=== PATIENT | female | born 1975 ===

== ENCOUNTER 2022-06-07 12:11 | Outpatient (REF) | payer MEDICAID, SELFPAY ==
--- NOTE | 2022-06-07 09:15 | EMG_ITS ---
Please see scanned EMG / Nerve Conduction Report. MTDD
== END 2022-06-07 12:12 | disposition home or self-care (01) ==
LOC: HO.NEURO 12:11
PROVIDERS: PCP Internal Medicine
DX: R20.2 Paresthesia of skin (principal)
CPT/HCPCS: 95885; 95910

== ENCOUNTER 2025-01-29 09:55 | Outpatient (AMB) | payer MEDICAID, SELFPAY ==
[2025-01-29 10:05] VITALS: BP 146/80; PULSE 94; O2SAT 97; BMI 34.9
--- NOTE | 2025-01-29 10:05 | A.OFFVIS_ITS ---
Vital Signs 3 01/29/25 10:05 Height 5 ft 6 in Weight 216 lb 4.375 oz BMI 34.9 BP 146/80 H Blood Pressure Location Lt brachial Position Sitting Pulse 94 Pulse Source Pulse Oximeter Pulse Oximetry (%) 97 Oxygen Delivery Method Room Air Intake Visit Reasons: Hx of thyroid cancer, adrenal mass,Hyperparathyroi Intake Note: New patient present today for Hx of thyroid cancer, adrenal mass and Hyper parathyroid. Library Manager Required: Yes Library Manager Language: Medical Billing Supervisor Services: Library Manager Offered & Declined Accompanied by: Spouse Allergies cephalexin Allergy (Mild, Verified 01/29/25 10:10) Dizziness Medication List - Last Reconciled 01/29/25 by Estephanie Cevallos MD albuterol sulfate 90 mcg/actuation (Ventolin HFA) 1 inh inhalation QID atorvastatin (Lipitor) 20 mg PO DAILY cholecalciferol (vitamin D3) 250 mcg PO DAILY fluticasone furoate 50 mcg/actuation inhalation loratadine (Claritin) 10 mg PO DAILY melatonin 10 mg PO BEDTIME PRN nystatin 1 appl topical DAILY omeprazole 20 mg PO DAILY prednisone 20 mg PO DAILY sertraline 25 mg PO DAILY tramadol 50 mg PO DAILY HPI Comments Details: 49-year-old female coming in today for initial evaluation with a history of thyroid cancer, status post right hemithyroidectomy at age 15 with findings of thyroid cancer per patient, no completion thyroidectomy or radioactive iodine done, who was then followed by previous reverberatory furnace supervisor for left-sided nodules, hypothyroidism, history of secondary hyperparathyroidism which resolved after replacement of vitamin-D, history of right 2.5 cm adrenal gland nodule. Here today with Tong Panda jameson Dunlap ? Left ? In [place]. last visit 2018. Multinodular goiter Hypothyroidism Thyroid cancer History of thyroid cancer Age 15: Status post right hemithyroidectomy by an MD through [employer] organization in [facility]. No surgical records or pathology present. No completion thyroidectomy or radioactive iodine done after surgery. Per patient she was told she has thyroid cancer. Then in her 30s had compressive symptoms, was found to have left-sided thyroid nodules, for which she has been followed with surveillance ultrasounds. Per last Endocrinology records 12/06: Ultrasound neck showed stable left midpole 1.3 cm and 0.8 cm. Midline 8 mm solid hypoechoic nodule with calcifications read as TR 5 which was stable compared to 2018 per notes. Developed hypothyroidism 13 years post surgery. Currently on levothyroxine 75 mcg daily. History of secondary hyperparathyroidism resolved after vitamin-D was repleted 2019, no need to follow on this. Adrenal nodule. Elevated cortisol level Incidentally discovered right 2.5 cm adrenal nodule? Previous workup showed negative plasma metanephrine normetanephrine levels from 2019. Normal aldosterone levels from 2019. Apparently 1 mg dexamethasone suppression test was abnormal with a cortisol level of 2, dexamethasone level not measured. Salivary cortisol levels were then ordered in 2019 which were both normal X 2. Labs reviewed 03/12/2019 Salivary cortisol 0.024 and 0.022 Aldosterone 8.3 Plasma renin activity 1.2 Plasma normetanephrine levels 79 Plasma metanephrine 33 no offical diagnosis of HTN but BP elevated today, prediabets No easy bruising No fractures No skin thinning No facial plethora weight stable Physical exam General: sitting comfortably in no acute distress HEENT: normocephalic/atraumatic, Neck: supple, palpable 2 cm left-sided nodule Cardiac: normal heart sounds Pulm: normal breath sounds B/L, no added breath sounds Abd: not distended, no tenderness Extremities: no edema, no signs of myxedema PFSH Medical History (Updated 01/29/25 @ 10:13 by Estephanie Cevallos MD) Hypothyroidism (acquired) History of thyroid cancer Multinodular goiter (nontoxic) Adrenal nodule Surgical History (Updated 01/29/25 @ 10:11 by ALINE Kim) Hx of breast reduction, elective History of lobectomy of thyroid H/O: hysterectomy Family History Mother Diabetes Hyperlipemia Hypertension Father Hypertension Social History Alcohol intake: current Alcohol intake frequency: does not drink Patient Tobacco Use Status: Never used Tobacco Physical Exam Vital Signs: Last Vital Signs Pulse 94 01/29/25 10:05 BP 146/80 H 01/29/25 10:05 Pulse Ox 97 01/29/25 10:05 Oxygen Delivery Method Room Air 01/29/25 10:05 BMI result Body Mass Index 34.9 Assessment & Plan Assessment & Plan (1) Multinodular goiter (nontoxic): Code(s): E04.2 - Nontoxic multinodular goiter Category: Medical Plan: 49-year-old female coming in today for initial evaluation with a history of thyroid cancer status post right hemithyroidectomy at age 15 with findings of thyroid cancer per patient, no pathology or surgical records available this was in [place] and, no completion thyroidectomy or radioactive iodine after surgery, likely was MARCO low risk? Has been followed with surveillance ultrasounds by prior reverberatory furnace supervisor for left-sided nodules, last ultrasound neck was in 2019. At this time I will obtain an updated neck ultrasound. Apparently 13 years after surgery she was also started on levothyroxine, per records it shows she was on 100 mcg daily recently, however per patient she has not been on levothyroxine since 2019 as that was last prescribed by her reverberatory furnace supervisor. I will check TSH and free T4. I have also asked them to bring all medication bottles to next visit to clarify her medication reconciliation. Plan: -ordered ultrasound of the thyroid -ordered TSH, free T4 , TG and TG antibody levels -bring all medication bottles to next visit (2) Hypothyroidism (acquired): Code(s): E03.9 - Hypothyroidism, unspecified Category: Medical Plan: See above (3) History of thyroid cancer: Code(s): Z85.850 - Personal history of malignant neoplasm of thyroid Category: Medical Plan: See above (4) Adrenal nodule: Code(s): E27.9 - Disorder of adrenal gland, unspecified Category: Medical Plan: 49-year-old female with history of incidentally discovered right-sided 2.5 cm adrenal nodule per records. Previous workup from 2019 showed negative plasma metanephrine normetanephrine levels ruling out pheochromocytoma. Normal aldosterone levels from 2019 with non suppressed plasma renin activity, no concerns for hyperaldosteronism. Patient has no official diagnosis of hypertension, blood blood pressure noted to be elevated today. I told her to keep an eye on it and discuss PCP if remains elevated. Workup in 2019 showed equivocal dexamethasone suppression test with cortisol level of 2 however dexamethasone level was not obtained on this. She had 2 normal salivary cortisol levels in 2019. She does not have any history of diabetes, does have history of prediabetes, weight has been stable, no cushingoid features on exam. I would have repeated her dexamethasone suppression test, however at this time apparently she is on prednisone 20 mg daily which is on her medication list. She is not sure if she is taking this medication or why she was prescribed this. At this point I will F asked her to bring all her medication bottles to next visit, we will obtain a baseline cortisol, acth, DHEA-S level but have to keep in mind that this could be affected if she is actually on prednisone. She was supposed to have repeat CT scan in 2019, no record of repeat CT scan done, she was then lost to follow up. Plan: -ordered cortisol, acth, DHEA-S levels -bring on medication bottles to next visit -ordered CT adrenal gland -follow up in 4 weeks to discuss results Plan I spent 45 minutes in reviewing the record, seeing the patient and documenting in the medical record. Orders: Orders 2 US thyroid Today E03.9 - Hypothyroidism, unspecified, E04.2 - Nontoxic multinodular goiter, E27.9 - Disorder of adrenal gland, unspecified, Z85.850 - Personal history of malignant neoplasm of thyroid Thyroid Stimulating Hormone Today E03.9 - Hypothyroidism, unspecified, E04.2 - Nontoxic multinodular goiter, E27.9 - Disorder of adrenal gland, unspecified, Z85.850 - Personal history of malignant neoplasm of thyroid Adrenocorticotropic Hormone Today E03.9 - Hypothyroidism, unspecified, E04.2 - Nontoxic multinodular goiter, E27.9 - Disorder of adrenal gland, unspecified, Z85.850 - Personal history of malignant neoplasm of thyroid DHEA Sulfate Today E03.9 - Hypothyroidism, unspecified, E04.2 - Nontoxic multinodular goiter, E27.9 - Disorder of adrenal gland, unspecified, Z85.850 - Personal history of malignant neoplasm of thyroid Thyroglobulin Antibodies Today E04.9 - Nontoxic goiter, unspecified, Z85.850 - Personal history of malignant neoplasm of thyroid Free T4 (Free Thyroxine) Today E03.9 - Hypothyroidism, unspecified, E04.2 - Nontoxic multinodular goiter, E27.9 - Disorder of adrenal gland, unspecified, Z85.850 - Personal history of malignant neoplasm of thyroid CT adrenal wo/w IV con Today E03.9 - Hypothyroidism, unspecified, E04.2 - Nontoxic multinodular goiter, E27.9 - Disorder of adrenal gland, unspecified, Z85.850 - Personal history of malignant neoplasm of thyroid Cortisol Random Today E03.9 - Hypothyroidism, unspecified, E04.2 - Nontoxic multinodular goiter, E27.9 - Disorder of adrenal gland, unspecified, Z85.850 - Personal history of malignant neoplasm of thyroid Thyroglobulin Today E04.9 - Nontoxic goiter, unspecified, Z85.850 - Personal history of malignant neoplasm of thyroid Thyroglobulin Tumor Marker Today E04.9 - Nontoxic goiter, unspecified, Z85.850 - Personal history of malignant neoplasm of thyroid Patient Instructions: Do blood work at 8 AM Do ultrasound thyroid , please schedule this as soon as possible Do CT scan of adrenals, also schedule this as soon as possible Follow up in 4 weeks to discuss results Please bring all medication bottles to next visit Coding Level of Care Code New Pt Level 4 (27216) Diagnoses Multinodular goiter (nontoxic) E04.2 Hypothyroidism (acquired) E03.9 History of thyroid cancer Z85.850 Adrenal nodule E27.9 Time Spent (min) 45
--- OUTSIDE RECORDS SUMMARY | 2025-01-29 11:49 | XMS_ITS | Clinical Summary ---
Author Organization [address] Address [address] [place] [phone] Phone Care Team Providers Care Gum Dipper Name Role Phone Collins Moncada DO Primary Care Provider [phone] Allergies Active Allergy Reactions Criticality Noted Date Comments Cephalexin 10/29/2024 SLEEPY/DIZZY Medications levothyroxine sodium (TIROSINT) 50 mcg capsule Take 1 capsule (50 mcg total) by mouth. Active cholecalciferol (VITAMIN D-3) 50 mcg (2,000 unit) tablet Take 2,000 Int'l Units by mouth. 09/26/2018 Active atorvastatin (LIPITOR) 20 mg tablet Active omeprazole (PriLOSEC) [address] capsule Active sertraline (ZOLOFT) 25 mg tablet Active traMADoL 5 mg/mL solution Take 5 mg by mouth. Active loratadine (Claritin) 10 mg tablet Take 1 tablet (10 mg total) by mouth. 11/17/2020 Active Active Problems Problem Noted Date Diagnosed Date Class 1 obesity 10/29/2024 Anxiety Chronic low back pain Diabetes mellitus type 2 in nonobese (CMS/HCC V24, CMS/HCC V28) HLD (hyperlipidemia) Hyperparathyroid bone disease (CMS/HCC V24) Hypothyroid SHIVAM (obstructive sleep apnea) Plantar wart PUD (peptic ulcer disease) Renal stones Thyroid nodule Vitamin D deficiency Surgical History Surgery Date Site/Laterality Comments HYSTERECTOMY THYROID LOBECTOMY 2/2 malignancy Medical History Medical History Date Comments Renal stones Thyroid nodule Vitamin D deficiency SHIVAM (obstructive sleep apnea) PUD (peptic ulcer disease) Plantar wart Anxiety HLD (hyperlipidemia) Hypothyroid Hyperparathyroid bone disease (CMS/HCC V24) Diabetes mellitus type 2 in nonobese (CMS/HCC V2 4, CMS/HCC V28) Chronic low back pain Family History Medical History Relation Name Comments Hypertension Father Diabetes Mother Hyperlipidemia Mother Hypertension Mother Breast cancer Neg Hx no fam hx Colon cancer Neg Hx no fam hx Relation Name Status Comments Father Mother Social History Tobacco Use Types Packs/Day Years Used Date Smoking Tobacco: Never Assessed Comments Unknown Sex and Gender Information Value Date Recorded Sex Assigned at Not on file Legal Sex Female 4:48 PM EST Gender Identity Not on file Sexual Orientation Not on file Obstetrics History Plan of Treatment Upcoming Encounters Date Type Department Care Team (Late st Contact Info) Description 07/09/2025 10:30 AM EST Consult Bariatric Surgery - [address] [place] [address] Leatha Allred MD [address] [place] [phone] Health Maintenance Due Date Last Done Comments Breast Cancer Screening 1975 Diabetes: Annual Foot Exam 1985 Diabetes: Annual Retina Eye Exam 1985 DTaP,Tdap,and Td Vaccines (1 - Tdap) 1994 Hepatitis B Vaccines (1 of 3 - 19+ 3-dose series) 1994 Pneumococcal Vaccine: Pediat rics (0 to 5 Years) and At-Risk Patients (6 to 49 Years) (1 of 2 - PCV) 1994 Cervical Cancer Screening: P ap Smear 1996 HIV Screening 04/19/2022 Hepatitis C Screening 04/19/2022 Social Influencers of Health Screening 04/19/2022 Depression Screening 05/21/2024 Diabetes: Annual Urine Albumin-Creatinine Ratio (uACR) 10/29/2024 COVID-19 Vaccine (2 - 2024-2 6 season) 2025 12/28/2020 Influenza Vaccine (#1) 2025 Diabetes: Blood Sugar Contro l Test (HGBA1C) 04/09/2025 10/07/2024 Diabetes: Annual GFR (Glomer ular Filtration Rate) 10/07/2025 10/07/2024 Cholesterol Screening (Lipid Panel) 10/07/2029 10/07/2024 Colorectal Cancer Screening: Colonoscopy 12/03/2034 12/03/2024 HIB Vaccines Aged Out No longer eligi ble based on patient's age to complete this topic HPV Vaccines Aged Out No longer eligi ble based on patient's age to complete this topic Hepatitis A Vaccines Aged Out No long er eligible based on patient's age to complete this topic IPV Vaccines Aged Out No longer eligi ble based on patient's age to complete this topic MMR Vaccines Aged Out No longer eligi ble based on patient's age to complete this topic Meningococcal ACWY Vaccine Aged Out N o longer eligible based on patient's age to complete this topic Meningococcal B Vaccine Aged Out No l onger eligible based on patient's age to complete this topic RSV Immunization Patients Un giana 20 months Aged Out No longer eligible b ased on patient's age to complete this topic Varicella Vaccines Aged Out No longer eligible based on patient's age to complete this topic Procedures Procedure Name Priority Date/Time Associated Diagnosis Comments COLONOSCOPY Routine 12/03/2024 1:47 PM EDT COMPREHENSIVE METABOLIC PANEL Routine 10/07/2024 3:26 PM EDT Hypothyroid Vitamin D deficiency Dizziness HLD (hyperlipidemia) Routine general medical examination at a health care facility HEMOGLOBIN A1C Routine 10/07/2024 3:26 PM EDT Hypothyroid Vitamin D deficiency Dizziness HLD (hyperlipidemia) Routine general medical examination at a health care facility LIPID PANEL WITH REFLEX TO DIRECT LDL Routine 10/07/2024 3:26 PM EDT Hypothyroid Vitamin D deficiency Dizziness HLD (hyperlipidemia) Routine general medical examination at a health care facility from Last 3 Months or Most Recently Relevant to Health Maintenance Results * COLONOSCOPY (12/03/2024 1:47 PM EDT) Anatomical Region Laterality Modality Endoscopy us Historical Provider GI~PROCEDURE ORDERABLES F inal Result * (ABNORMAL) Lipid panel with reflex to direct LDL (10/07/2024 3:26 PM EDT) Cholesterol 242(H) 0 - 200 mg/dL LAB CHEMISTRY METHOD 10/07/2024 7:59 PM EDT [facility] Triglycerides 149 0 - 150 mg/dL LAB CHEMISTRY METHOD 10/07/2024 7:59 PM EDT [facility] HDL 52 >=40 mg/dL LAB CHEMISTRY METHOD 10/07/2024 7:59 PM EDT [facility] LDL Calculated 160(H) 0 - 100 mg/dL LAB CHEMISTRY METHOD 10/07/2024 7:59 PM EDT [facility] VLDL Cholesterol Ian 29.8 mg/dL LAB CHEMISTRY METHOD 10/07/2024 7:59 PM EDT [facility] Non HDL Chol. (LDL+VLDL) 190(H) <145 mg/dL LAB CHEMISTRY METHOD 10/07/2024 7:59 PM EDT [facility] Chol/HDL Ratio 4.7(H) 0.0 - 4.4 LAB CHEMISTRY METHOD 10/07/2024 7:59 PM EDT [facility] Blood Venous blood specimen / Unknown Venipuncture / Unknown 10/07/2024 3:26 PM EDT 10/07/2024 3:26 PM EDT [facility] LAB BLOOD ORDERABLES Final Resul t [facility] [address] [place] [address], * Hemoglobin A1c (10/07/2024 3:26 PM EDT) Hemoglobin A1C 6.3 <6.5 % LAB CHEMISTRY METHOD 10/10/2024 10:41 AM EDT [facility] Mean Bld Glu Estim. 134 mg/dL LAB CHEMISTRY METHOD 10/10/2024 10:41 AM EDT [facility] Blood Venous blood specimen / Unknown Venipuncture / Unknown 10/07/2024 3:26 PM EDT 10/07/2024 3:26 PM EDT [facility] LAB BLOOD ORDERABLES Final Resul t [facility] [address] [place] [address], * Comprehensive metabolic panel (10/07/2024 3:26 PM EDT) Sodium 139 133 - 145 mmol/L LAB CHEMISTRY METHOD 10/07/2024 8:01 PM [facility] Potassium 4.4 3.5 - 5.5 mmol/L LAB CHEMISTRY METHOD 10/07/2024 8:01 PM [facility] Chloride 106 96 - 110 mmol/L LAB CHEMISTRY METHOD 10/07/2024 8:01 PM [facility] CO2 29 21 - 32 mmol/L LAB CHEMISTRY METHOD 10/07/2024 8:01 PM [facility] Anion Gap 4 3 - 11 LAB CHEMISTRY METHOD 10/07/2024 8:01 PM [facility] Glucose 90 70 - 100 mg/dL LAB CHEMISTRY METHOD 10/07/2024 8:01 PM [facility] BUN 13 5 - 25 mg/dL LAB CHEMISTRY METHOD 10/07/2024 8:01 PM [facility] Creatinine 0.78 0.50 - 1.10 mg/dL LAB CHEMISTRY METHOD 10/07/2024 8:01 PM [facility] eGFR 93 >=60 mL/min/1. 73m2 LAB CHEMISTRY METHOD 10/07/2024 8:01 PM [facility] Comment:Calculation based on the Chronic Kidney Disease Epidemiology Collaboration (CKD-EPI) equation refit without adjustment for race. BUN/Creatinine Ratio 16.7 LAB CHEMISTRY METHOD 10/07/2024 8:01 PM [facility] Calcium 9.0 8.5 - 10.5 mg/dL LAB CHEMISTRY METHOD 10/07/2024 8:01 PM EDT [facility] AST (SGOT) 12 10 - 42 unit/L LAB CHEMISTRY METHOD 10/07/2024 8:01 PM EDT [facility] ALT (SGPT) 24 10 - 60 unit/L LAB CHEMISTRY METHOD 10/07/2024 8:01 PM EDT [facility] Alkaline Phosphatase 90 42 - 121 unit/L LAB CHEMISTRY METHOD 10/07/2024 8:01 PM EDT [facility] Total Protein 7.8 6.0 - 8.0 g/dL LAB CHEMISTRY METHOD 10/07/2024 8:01 PM EDT [facility] Albumin 3.6 3.2 - 5.0 g/dL LAB CHEMISTRY METHOD 10/07/2024 8:01 PM EDT [facility] Total Bilirubin 0.2 0.0 - 1.4 mg/dL LAB CHEMISTRY METHOD 10/07/2024 8:01 PM EDT [facility] Blood Venous blood specimen / Unknown Venipuncture / Unknown 10/07/2024 3:26 PM EDT 10/07/2024 3:26 PM EDT [facility] LAB BLOOD ORDERABLES Final Resul t [facility] [address] [place] [address], from Last 3 Months or Most Recently Relevant to Health Maintenance Insurance MEDICAID - [place] Care Teams Gum Dipper Relationship Specialty Start Date End Date Collins Moncada DO [address] [place] [phone] PCP - General Internal Medicine 10/07/24
== END 2025-01-29 10:33 | disposition home or self-care (01) ==
LOC: HO.ENCR 09:55
PROVIDERS: PCP Internal Medicine; Visit Provider Student in an Organized Health Care Education/Training Program
DX: E04.2 Nontoxic multinodular goiter (principal); E03.9 Hypothyroidism, unspecified; Z85.850 Personal history of malignant neoplasm of thyroid; E27.9 Disorder of adrenal gland, unspecified
CPT/HCPCS: 99204

== ENCOUNTER → 2025-01-29 09:55 | Outpatient (BNVA) | payer MEDICAID, SELFPAY | PROVIDERS: PCP Internal Medicine; Visit Provider Student in an Organized Health Care Education/Training Program | DX: E27.9 Disorder of adrenal gland, unspecified (principal); E04.2 Nontoxic multinodular goiter; E03.9 Hypothyroidism, unspecified; Z85.850 Personal history of malignant neoplasm of thyroid | CPT/HCPCS: 99202 ==

== ENCOUNTER 2025-03-06 11:38 | Outpatient (REF) | payer MEDICAID, SELFPAY ==
--- NOTE | ~2025-03-06 | US_ITS ---
EXAMINATION: US THYROID CLINICAL INFORMATION: Goiter. Status post right thyroidectomy. COMPARISON: None available. TECHNIQUE: Linear transducer grayscale and color Doppler examination with attention to the region of the thyroid. FINDINGS: SIZE: Measurements of the thyroid lobes and nodules are given in sagittal, anteroposterior and transverse dimensions respectively. Right Thyroid Lobe absent. Left Thyroid Lobe: 5.4 x 1.8 x 2.1 cm, volume 10.8 mL. Parenchyma: The gland echotexture is heterogeneous. Thyroid vascularity is increased. Isthmus: 0.64 cm in maximum AP dimension. Estimated total number of nodules greater than or equal to 1 cm: 1. [employer] nodules are described as follows: 1. Location: Midportion left lobe. Size: 1.1 x 1.0 x 1.0 cm, volume 0.60 mL. Nodule characteristics: Composition: Mixed cystic and solid (1). Echogenicity: Cannot be determined (1). Shape: Not taller than wide (0). Margins: Smooth (0). Echogenic Foci: Punctate echogenic foci (3). ACR TI-RADS total points: 5 ACR TI-RADS category: 4 2. Location: [Upper, left lobe. Size: 0.51 x 0.38 x 0.45 cm, volume 0.25 mL. Nodule characteristics: Composition: Cystic(0). Echogenicity: Anechoic (0). Shape: Not taller than wide (0). Margins: Smooth (0). Echogenic Foci: None (0). ACR TI-RADS total points: 0 ACR TI-RADS category: 1 3. Location: Midportion left lobe. Size: 0.84 x 0.71 x 0.63 cm, volume 0.20 mL. Nodule characteristics: Composition: Spongiform (0). Echogenicity: Shape: Margins: Echogenic Foci: ACR TI-RADS total points: 0 ACR TI-RADS category: 1 4. Location: Midportion left lobe. Size: 0.85 x 0.65 x 0.89 cm, volume 0.26 mL. Nodule characteristics: Composition: Solid/almost completely solid (2). Echogenicity: Isoechoic (1). Shape: Not taller than wide (0). Margins: Smooth (0). Echogenic Foci: Macrocalcifications (1). ACR TI-RADS total points: 4 ACR TI-RADS category: 4 5. Location: Upper left lobe. Size: 0.62 x 0.48 x 0.63 cm, volume 0.1 mL. Nodule characteristics: Composition: Mixed cystic and solid (1). Echogenicity: Hypoechoic (2). Shape: Not taller than wide (0). Margins: Smooth (0). Echogenic Foci: None (0). ACR TI-RADS total points: 3 ACR TI-RADS category: 3 NODES: No lymphadenopathy is seen in the tissue surrounding the thyroid gland. US/US thyroid IMPRESSION: ACR TI-RADS Category 3 and 4. ACR TI-RADS RECOMMENDATION REFERENCE: Ultrasound-guided fine-needle aspiration, followup ultrasound, no further follow up. * TR1 (0 point) and TR2 (2 points): No FNA or follow up. * TR3 (3 points): FNA if more than or equal to 2.5 cm in maximum dimension, followup ultrasound in 1, 3 and 5 years if 1.5 to 2.4 cm in maximum dimension. * TR4 (4-6 points): FNA if more than or equal to 1.5 cm in maximum dimension, followup ultrasound in 1, 2, 3 and 5 years if 1 to 1.4 cm in maximum dimension. * TR5 (more than or equal to 7 points): FNA if more than or equal to 1 cm in maximum dimension, followup ultrasound every year for 5 years if 0.5 to 0.9 cm in maximum dimension. * TR3, TR4 or TR5 nodules that are below the size threshold for followup receive no follow up. Electronically signed by: Manoj Mohan MD 03/06/2025 12:46 PM EDT
--- OUTSIDE RECORDS SUMMARY | 2025-03-06 14:27 | XMS_ITS | Clinical Summary ---
Author Organization [address] Address [address] [place] [phone] Phone Care Team Providers Care Diesel Power Mechanic Name Role Phone Collins Moncada DO Primary Care Provider [phone] Allergies Active Allergy Reactions Criticality Noted Date [...] 10:30 AM EST Consult Bariatric Surgery - [address] [place] [address] Leatha Allred MD [address] [place] [phone] Health Maintenance Due Date Last Done [...] 10/07/2024 Colorectal Cancer Screening: Colonoscopy 12/03/2034 12/03/2024 RSV Immunization Adult Patie nts (1 - 1-dose 75+ series) 2050 HIB Vaccines Aged Out No longer eligi [...] LAB CHEMISTRY METHOD 10/07/2024 7:[address] [facility] Triglycerides 149 0 - 150 mg/dL LAB CHEMISTRY METHOD 10/07/2024 7:[address] [facility] HDL 52 >=40 mg/dL LAB CHEMISTRY METHOD 10/07/2024 7:[address] [facility] LDL Calculated 160(H) 0 - 100 mg/dL LAB CHEMISTRY METHOD 10/07/2024 7:[address] [facility] VLDL Cholesterol Ian 29.8 mg/dL LAB CHEMISTRY METHOD 10/07/2024 7:[address] [facility] Non HDL Chol. (LDL+VLDL) 190(H) <145 mg/dL LAB CHEMISTRY METHOD 10/07/2024 7:[address] [facility] Chol/HDL Ratio 4.7(H) 0.0 - 4.4 LAB CHEMISTRY METHOD 10/07/2024 7:[address] [facility] Blood Venous blood specimen / Unknown Venipuncture / Unknown 10/07/2024 3:26 PM EDT 10/07/2024 3:26 PM EDT [facility] BLOOD ORDERABLES Final Resul t [facility] [address] [place] [address], * Hemoglobin A1c (10/07/2024 3:26 PM EDT) Hemoglobin A1C 6.3 <6.5 % LAB CHEMISTRY METHOD 10/10/2024 10:[address] [facility] Mean Bld Glu Estim. 134 mg/dL LAB CHEMISTRY METHOD 10/10/2024 10:[address] [facility] Blood Venous blood specimen / Unknown Venipuncture / Unknown 10/07/2024 3:26 PM EDT 10/07/2024 3:26 PM EDT [facility] BLOOD ORDERABLES Final Resul t [facility] [address] [place] [address], [place] [phone] * Comprehensive metabolic panel (10/07/2024 3:26 PM EDT) Sodium 139 133 - 145 mmol/L LAB CHEMISTRY METHOD 10/07/2024 8:01 PM [facility] Potassium 4.4 3.5 - 5.5 mmol/L LAB CHEMISTRY METHOD 10/07/2024 8:01 PM [facility] Chloride 106 96 - 110 mmol/L LAB CHEMISTRY METHOD 10/07/2024 8:01 PM [facility] CO2 29 21 - 32 mmol/L LAB CHEMISTRY METHOD 10/07/2024 8:01 PM [facility] Anion Gap 4 3 - 11 LAB CHEMISTRY METHOD 10/07/2024 8:01 PM [facility] Glucose 90 70 - 100 mg/dL LAB CHEMISTRY METHOD 10/07/2024 8:01 PM [facility] BUN 13 5 - 25 mg/dL LAB CHEMISTRY METHOD 10/07/2024 8:01 PM [facility] Creatinine 0.78 0.50 - 1.10 mg/dL LAB CHEMISTRY METHOD 10/07/2024 8:01 PM [facility] eGFR 93 >=60 mL/min/1. 73m2 LAB CHEMISTRY METHOD 10/07/2024 8:01 PM [facility] Comment:Calculation based on the Chronic Kidney Disease Epidemiology Collaboration (CKD-EPI) equation refit without adjustment for race. BUN/Creatinine Ratio 16.7 LAB CHEMISTRY METHOD 10/07/2024 8:01 PM [facility] Calcium 9.0 8.5 - 10.5 mg/dL LAB CHEMISTRY METHOD 10/07/2024 8:[address] [facility] AST (SGOT) 12 10 - 42 unit/L LAB CHEMISTRY METHOD 10/07/2024 8:01 PM [facility] ALT (SGPT) 24 10 - 60 unit/L LAB CHEMISTRY METHOD 10/07/2024 8:01 PM [facility] Alkaline Phosphatase 90 42 - 121 unit/L LAB [facility]STR[facility] Total Protein 7.8 6.0 - 8.0 g/dL LAB CHEMISTRY METHOD 10/07/2024 8:01 PM [facility] Albumin 3.6 3.2 - 5.0 g/dL LAB CHEMISTRY METHOD 10/07/2024 8:01 PM [facility] Total Bilirubin 0.2 0.0 - 1.4 mg/dL LAB CHEMISTRY METHOD 10/07/2024 8:[address] [facility] Blood Venous blood specimen / Unknown Venipuncture / Unknown 10/07/2024 3:26 PM EDT 10/07/2024 3:26 PM EDT [facility] BLOOD ORDERABLES Final Resul t [facility] [address] [place] [address], from Last 3 Months or Most Recently Relevant to Health Maintenance Insurance MEDICAID - [place] Care Teams Diesel Power Mechanic Relationship Specialty Start Date End Date Collins Moncada DO [address] [place] [phone] PCP - General Internal Medicine 10/07/24
[2025-03-06 15:06] LABS: Free T4 (Free Thyroxine) 0.90 ng/dL (0.71-1.85); Thyroid Stimulating Hormone 1.85 uIU/mL (0.32-4.0)
[2025-03-09 18:53] LABS: Thyroglobulin 53.2 ng/mL; Thyroglobulin Antibodies <1 IU/mL (< or = 1)
== END 2025-03-06 11:39 | disposition home or self-care (01) ==
LOC: HO.HMGCX 11:38
PROVIDERS: PCP Internal Medicine; Visit Provider Student in an Organized Health Care Education/Training Program
DX: E04.2 Nontoxic multinodular goiter (principal); E27.9 Disorder of adrenal gland, unspecified; E03.9 Hypothyroidism, unspecified; Z85.850 Personal history of malignant neoplasm of thyroid
CPT/HCPCS: 36415; 76536; 82533; 82627; 84432; 84439; 84443; 86800

== ENCOUNTER → 2025-03-06 11:51 | Outpatient (BNV) | payer MEDICAID, SELFPAY | PROVIDERS: PCP Internal Medicine; Visit Provider Radiology Diagnostic Radiology | DX: E04.9 Nontoxic goiter, unspecified (principal); E27.9 Disorder of adrenal gland, unspecified; Z90.89 Acquired absence of other organs | CPT/HCPCS: 76536 ==

== ENCOUNTER 2025-03-11 08:29 | Outpatient (REF) | payer MEDICAID, SELFPAY ==
--- NOTE | ~2025-03-11 | CT_ITS ---
CLINICAL HISTORY: E27.9 - Disorder of adrenal gland, unspecified CT abdomen without contrast Comparison: None provided Findings: No consolidation or effusion. There is a right adrenal nodule which measures up to 2 cm and [address] The liver, gallbladder, spleen and left adrenal gland are unremarkable. There is a gastric diverticulum which extends inferiorly abutting the superior aspect of the left adrenal gland, coronal image 87. There are several bilateral nonobstructing renal calculi. The visualized bowel is unremarkable. No acute osseous finding. Impression: The 2 cm right adrenal nodule measures 11 Hounsfield units. This is most likely reflective of a benign adenoma. This document has been electronically signed by: Waldemar Evans MD on 03/12/2025 13:00:07
--- OUTSIDE RECORDS SUMMARY | 2025-03-11 08:48 | XMS_ITS | Clinical Summary ---
Author Organization [address] Address [address] [place] [phone] Phone Care Team Providers Care Manager Metrology Name Role Phone Collins Moncada DO Primary Care Provider [phone] Allergies Active Allergy Reactions Criticality Noted Date [...] 10:30 AM EST Consult Bariatric Surgery - [address] [place] [address] Leatha Allred MD [address] [place] [phone] Health Maintenance Due Date Last Done [...] LAB CHEMISTRY METHOD 10/07/2024 7:59 PM EDT [facility] Triglycerides 149 0 - 150 mg/dL LAB CHEMISTRY METHOD 10/07/2024 7:59 PM EDT [facility] HDL 52 >=40 mg/dL LAB CHEMISTRY METHOD 10/07/2024 7:59 PM EDT [facility] LDL Calculated 160(H) 0 - 100 mg/dL LAB CHEMISTRY METHOD 10/07/2024 7:59 PM EDT [facility] VLDL Cholesterol Ian 29.8 mg/dL LAB CHEMISTRY METHOD 10/07/2024 7:59 PM EDT [facility] Non HDL Chol. (LDL+VLDL) 190(H) <145 mg/dL LAB CHEMISTRY METHOD 10/07/2024 7:59 PM EDT [facility] Chol/HDL Ratio 4.7(H) 0.0 - 4.4 LAB CHEMISTRY METHOD 10/07/2024 7:59 PM EDT [facility] Blood Venous blood specimen / Unknown Venipuncture / Unknown 10/07/2024 3:26 PM EDT 10/07/2024 3:26 PM EDT [facility] LAB BLOOD ORDERABLES Final Resul t [facility] [address] [place] [address], * Hemoglobin A1c (10/07/2024 3:26 PM EDT) Hemoglobin A1C 6.3 <6.5 % LAB CHEMISTRY METHOD 10/10/2024 10:41 AM EDT [facility] Mean Bld Glu Estim. 134 mg/dL LAB CHEMISTRY METHOD 10/10/2024 10:41 AM EDT [facility] Blood Venous blood specimen / Unknown Venipuncture / Unknown 10/07/2024 3:26 PM EDT 10/07/2024 3:26 PM EDT [facility] LAB BLOOD ORDERABLES Final Resul t [facility] [address] [place] [address], [place] [phone] * Comprehensive metabolic panel (10/07/2024 3:26 PM EDT) Sodium 139 133 - 145 mmol/L LAB CHEMISTRY METHOD 10/07/2024 8:01 PM [facility] Potassium 4.4 3.5 - 5.5 mmol/L LAB CHEMISTRY METHOD 10/07/2024 8:01 PM [facility] Chloride 106 96 - 110 mmol/L LAB CHEMISTRY METHOD 10/07/2024 8:01 PM [facility] CO2 29 21 - 32 mmol/L LAB CHEMISTRY METHOD 10/07/2024 8:01 PM [facility] Anion Gap 4 3 - 11 LAB CHEMISTRY METHOD 10/07/2024 8:01 PM [facility] Glucose 90 70 - 100 mg/dL LAB CHEMISTRY METHOD 10/07/2024 8:01 PM [facility] BUN 13 5 - 25 mg/dL LAB CHEMISTRY METHOD 10/07/2024 8:01 PM [facility] Creatinine 0.78 0.50 - 1.10 mg/dL LAB CHEMISTRY METHOD 10/07/2024 8:01 PM [facility] eGFR 93 >=60 mL/min/1. 73m2 LAB CHEMISTRY METHOD 10/07/2024 8:01 PM [facility] Comment:Calculation based on the Chronic Kidney Disease Epidemiology Collaboration (CKD-EPI) equation refit without adjustment for race. BUN/Creatinine Ratio 16.7 LAB CHEMISTRY METHOD 10/07/2024 8:01 PM [facility] Calcium 9.0 8.5 - 10.5 mg/dL LAB CHEMISTRY METHOD 10/07/2024 8:01 PM EDT [facility] AST (SGOT) 12 10 - 42 unit/L LAB CHEMISTRY METHOD 10/07/2024 8:01 PM [facility] ALT (SGPT) 24 10 - 60 unit/L LAB CHEMISTRY METHOD 10/07/2024 8:01 PM [facility] Alkaline Phosphatase 90 42 - 121 unit/L LAB CHEMISTRY METHOD [facility] Total Protein 7.8 6.0 - 8.0 g/dL LAB CHEMISTRY METHOD 10/07/2024 8:01 PM [facility] Albumin 3.6 3.2 - 5.0 g/dL LAB CHEMISTRY METHOD 10/07/2024 8:01 PM [facility] Total Bilirubin 0.2 0.0 - 1.4 mg/dL LAB CHEMISTRY METHOD 10/07/2024 8:01 PM T [facility] Blood Venous blood specimen / Unknown Venipuncture / Unknown 10/07/2024 3:26 PM EDT 10/07/2024 3:26 PM EDT [facility] LAB BLOOD ORDERABLES Final Resul t [facility] [address] [place] [address], from Last 3 Months or Most Recently Relevant to Health Maintenance Insurance MEDICAID - [place] Care Teams Manager Metrology Relationship Specialty Start Date End Date Collins Moncada DO [address] [place] [phone] PCP - General Internal Medicine 10/07/24
== END 2025-03-11 08:30 | disposition home or self-care (01) ==
LOC: HO.CT 08:29
PROVIDERS: PCP Internal Medicine; Visit Provider Student in an Organized Health Care Education/Training Program
DX: E27.9 Disorder of adrenal gland, unspecified (principal); E04.2 Nontoxic multinodular goiter; E03.9 Hypothyroidism, unspecified; Z85.850 Personal history of malignant neoplasm of thyroid
CPT/HCPCS: 36415; 74150; 82024

== ENCOUNTER → 2025-03-11 08:35 | Outpatient (BNV) | payer MEDICAID, SELFPAY | PROVIDERS: PCP Internal Medicine; Visit Provider Radiology Vascular & Interventional Radiology | DX: E27.9 Disorder of adrenal gland, unspecified (principal) | CPT/HCPCS: 74150 ==